=== PATIENT | male | born 1970 | race Caucasian/White ===

== ENCOUNTER 2022-08-21 09:07 | Outpatient (REF) | payer BC, SELFPAY ==
--- NOTE | ~2022-08-21 | XR_ITS ---
EXAMINATION: XR HAND AND WRIST, RIGHT XR HAND AND WRIST, LEFT XR FOOT, RIGHT XR FOOT, LEFT CLINICAL INFORMATION: Primary osteoarthritis. COMPARISON: None TECHNIQUE: 3 views each foot. 4 views of each hand and wrist. FINDINGS: LEFT FOOT: There is a mild hallux valgus deformity at the 1st MTP joint. No visible acute fracture, dislocation or subluxation is seen. No bony erosive changes. The soft tissues are normal. The ankle mortise and subtalar joints are normal. RIGHT FOOT: There is a mild hallux valgus deformity at the 1st MTP joint without bony erosive changes. No visible acute fracture, dislocation or subluxation is seen. LEFT HAND/WRIST: There is mild reduction in the PIP and DIP joint spaces with periarticular spurring. No bony erosive changes are seen. There are no loose bodies. No soft tissue swelling. RIGHT HAND/WRIST: There is mild reduction in the PIP and DIP joint spaces with mild periarticular spurring. No bony erosive changes. No loose bodies. No joint effusion. The soft tissues are normal. XR/XR foot LT min 3V IMPRESSION: Mild hallux valgus deformity of the 1st MTP joints of each foot. No visible acute fracture, dislocation or subluxation is seen. Mild degenerative osteoarthritic changes of the PIP and DIP joints both hands with mild periarticular spurring. No visible acute fracture or dislocation.
--- NOTE | ~2022-08-21 | XR_ITS ---
EXAMINATION: XR HAND AND WRIST, RIGHT XR HAND AND WRIST, LEFT XR FOOT, RIGHT XR FOOT, LEFT CLINICAL INFORMATION: Primary osteoarthritis. COMPARISON: None TECHNIQUE: 3 views each foot. 4 views of each hand and wrist. FINDINGS: LEFT FOOT: There is a mild hallux valgus deformity at the 1st MTP joint. No visible acute fracture, dislocation or subluxation is seen. No bony erosive changes. The soft tissues are normal. The ankle mortise and subtalar joints are normal. RIGHT FOOT: There is a mild hallux valgus deformity at the 1st MTP joint without bony erosive changes. No visible acute fracture, dislocation or subluxation is seen. LEFT HAND/WRIST: There is mild reduction in the PIP and DIP joint spaces with periarticular spurring. No bony erosive changes are seen. There are no loose bodies. No soft tissue swelling. RIGHT HAND/WRIST: There is mild reduction in the PIP and DIP joint spaces with mild periarticular spurring. No bony erosive changes. No loose bodies. No joint effusion. The soft tissues are normal. XR/XR hand wrist RT IMPRESSION: Mild hallux valgus deformity of the 1st MTP joints of each foot. No visible acute fracture, dislocation or subluxation is seen. Mild degenerative osteoarthritic changes of the PIP and DIP joints both hands with mild periarticular spurring. No visible acute fracture or dislocation.
--- NOTE | ~2022-08-21 | XR_ITS ---
EXAMINATION: XR HAND AND WRIST, RIGHT XR HAND AND WRIST, LEFT XR FOOT, RIGHT XR FOOT, LEFT CLINICAL INFORMATION: Primary osteoarthritis. COMPARISON: None TECHNIQUE: 3 views each foot. 4 views of each hand and wrist. FINDINGS: LEFT FOOT: There is a mild hallux valgus deformity at the 1st MTP joint. No visible acute fracture, dislocation or subluxation is seen. No bony erosive changes. The soft tissues are normal. The ankle mortise and subtalar joints are normal. RIGHT FOOT: There is a mild hallux valgus deformity at the 1st MTP joint without bony erosive changes. No visible acute fracture, dislocation or subluxation is seen. LEFT HAND/WRIST: There is mild reduction in the PIP and DIP joint spaces with periarticular spurring. No bony erosive changes are seen. There are no loose bodies. No soft tissue swelling. RIGHT HAND/WRIST: There is mild reduction in the PIP and DIP joint spaces with mild periarticular spurring. No bony erosive changes. No loose bodies. No joint effusion. The soft tissues are normal. XR/XR foot RT min 3V IMPRESSION: Mild hallux valgus deformity of the 1st MTP joints of each foot. No visible acute fracture, dislocation or subluxation is seen. Mild degenerative osteoarthritic changes of the PIP and DIP joints both hands with mild periarticular spurring. No visible acute fracture or dislocation.
--- NOTE | ~2022-08-21 | XR_ITS ---
EXAMINATION: XR HAND AND WRIST, RIGHT XR HAND AND WRIST, LEFT XR FOOT, RIGHT XR FOOT, LEFT CLINICAL INFORMATION: Primary osteoarthritis. COMPARISON: None TECHNIQUE: 3 views each foot. 4 views of each hand and wrist. FINDINGS: LEFT FOOT: There is a mild hallux valgus deformity at the 1st MTP joint. No visible acute fracture, dislocation or subluxation is seen. No bony erosive changes. The soft tissues are normal. The ankle mortise and subtalar joints are normal. RIGHT FOOT: There is a mild hallux valgus deformity at the 1st MTP joint without bony erosive changes. No visible acute fracture, dislocation or subluxation is seen. LEFT HAND/WRIST: There is mild reduction in the PIP and DIP joint spaces with periarticular spurring. No bony erosive changes are seen. There are no loose bodies. No soft tissue swelling. RIGHT HAND/WRIST: There is mild reduction in the PIP and DIP joint spaces with mild periarticular spurring. No bony erosive changes. No loose bodies. No joint effusion. The soft tissues are normal. XR/XR hand wrist LT IMPRESSION: Mild hallux valgus deformity of the 1st MTP joints of each foot. No visible acute fracture, dislocation or subluxation is seen. Mild degenerative osteoarthritic changes of the PIP and DIP joints both hands with mild periarticular spurring. No visible acute fracture or dislocation.
== END 2022-08-21 09:08 | disposition home or self-care (01) ==
LOC: HO.XRAY 09:07
PROVIDERS: PCP Physician Assistant Medical; Visit Provider Student in an Organized Health Care Education/Training Program
DX: M19.041 Primary osteoarthritis, right hand (principal); M19.042 Primary osteoarthritis, left hand; M25.531 Pain in right wrist; M25.532 Pain in left wrist; M79.671 Pain in right foot; M79.672 Pain in left foot
CPT/HCPCS: 73110; 73130; 73630